=== PATIENT | female | born 1945 | race Caucasian/White ===

== ENCOUNTER 2018-01-19 06:37 | Day surgery (SDC) | payer OTHER ==
--- NOTE | 2018-01-18 10:28 | RAD REPORT ---
EXAM DESCRIPTION: RAD - Chest Pa And Lat (2 Views) - 01/18/2018 10:14 am CLINICAL HISTORY: Abdominal pain Chest pain. COMPARISON: ABDOMEN ACUTE SERIES dated 04/23/2010 FINDINGS: The lungs are mildly emphysematous but clear. The heart is normal in size. No displaced fr actures. IMPRESSION: Mild COPD.
[2018-01-18 12:08] LABS: Absolute Lymphocytes (CBC) 1.7 K/uL (0.7-4.9); Absolute Monocytes 0.4 K/uL (0.1-1.3); Absolute Neutrophil 3.2 K/uL (1.8-8.0); Basophils % 0.4 % (0-1.3); Eosinophils % 1.1 % (0-4.4); Hematocrit 44.8 % (36.0-45.0); Lymphocytes % 31.8 % (15.3-44.8); MCH 32.9 pg (27.0-35.0); MPV 9.2 fL (7.6-11.3); Monocytes % 7.4 % (3.3-12.3); RBC Red Blood Cell Count 4.71 M/uL (3.86-4.86)
--- NOTE | 2018-01-18 12:18 | EKG ---
Test Date: 2018-01-18 Test Time: 10:01:53 Cell Attendant: TUCKER MEASUREMENT RESULTS: Intervals: Rate: 55 OH: 162 QRSD: 100 QT: 464 QTc: 443 [place]: P: 51 OH: 162 QRS: -25 T: 14 INTERPRETIVE STATEMENTS: Sinus bradycardia Possible Left atrial enlargement Low voltage QRS Incomplete right bundle branch block Inferior infarct, age undetermined Abnormal ECG Compared to ECG 04/03/2013 11:13:12 Incomplete right bundle-branch block now present Sinus rhythm no longer present T-wave abnormality no longer present Possible ischemia no longer present Myocardial infarct finding still present Electronically Signed On 01-18-18 12:17:47 CDT by Zeb Sam
[2018-01-18 12:45] LABS: Potassium 3.9 mmol/L (3.5-5.1)
[2018-01-18 12:47] LABS: Albumin 3.8 g/dL (3.4-5.0); Bilirubin Direct 0.2 mg/dL (0-0.2); Bilirubin Total 0.8 mg/dL (0.2-1.0); Protein, Total 7.1 g/dL (6.4-8.2)
--- OUTSIDE RECORDS SUMMARY | 2018-01-19 06:41 | XMS REPORT | Clinical Summary ---
:1945 Author Organization [facility] Address [address] [place] [id number] Care Team Providers Name Role Phone Matt Barry MD Primary Care Provider Allergies Active Allergy Reactions Severity Noted Date Comments Gluten High 12/17/2015 Severe stomach cramp Cephalexin High 12/17/2015 Over 20 yrs ago Herbal Complex No.154 High 09/16/2015 Allergic to cigar smoke with SOB Sulfa (Sulfonamide 12/17/2015 Over 20 years ago Antibiotics) Current Medications Prescription Sig. Disp. Refills Start Date End Date Status levothyroxine (SYNTHROID, Take 75 mcg by Active LEVOTHROID) 75 MCG tablet mouth every morning. Active Problems Not on file Social History Tobacco Use Types Packs/Day Years Used Date Never Smoker Sex Assigned at Date Recorded Not on file Last Filed Vital Signs Not on file Plan of Treatment Not on file Results Not on fileafter 01/18/2017 Insurance Payer Benefit Plan / Group Subscriber ID Type Phone Address [employer] MEDICARE AETNA MEDICARE HMO/PPO [facility] xxxxxxxx HMO y [phone] [place] [address]
[2018-01-19] MEDS ORDERED: MIDAZOLAM HCL 2 MG/2 ML INJ ONE (07:10)
[2018-01-19] MEDS ORDERED: ROCURONIUM 50 MG/5 ML VIAL IV ONE (07:10)
[2018-01-19] MEDS ORDERED: FENTANYL CITR 100 MCG/2 ML ONE (07:10)
[2018-01-19] MEDS ORDERED: PROPOFOL 200 MG/20 ML VIAL IV ONE (07:10)
[2018-01-19] MEDS ORDERED: Ringers Lactate 1,000 ML IV ONE (07:30)
[2018-01-19] MEDS ORDERED: BUPIVACAINE 0.5% PF 10 ML VIAL ONE (07:31)
[2018-01-19] MEDS ORDERED: LIDOCAINE 2% INJ, MPF 2 ML 1 ML ONE (07:37)
[2018-01-19] MEDS ORDERED: CIPROFLOXACIN 400mg IV 400 MG/200 ML BAG IV ONE (08:06)
[2018-01-19] MEDS ORDERED: KETOROLAC 30 MG/ML INJ ONE (08:33)
[2018-01-19] MEDS ORDERED: DEXAMETHASONE 10 MG/ML VIAL ONE (08:33)
[2018-01-19] MEDS ORDERED: ONDANSETRON HCL 40 MG/20 ML VIAL ONE (08:33)
[2018-01-19] MEDS ORDERED: GLYCOPYRROLATE 0.2 MG/ML SYR ONE ×2 (08:40→08:42)
[2018-01-19] MEDS ORDERED: NEOSTIGMINE 1 MG/ML -5 ML SYRINGE ONE (08:40)
--- NOTE | 2018-01-19 08:45 | P.BOP ---
Preoperative diagnosis: RUQ pain, biliary dyskinesia, cholecystitis Postoperative diagnosis: same Primary procedure: Laparoscopic cholecystectomy Top Distribution Executive: THALIA MCLEAN Estimated blood loss: <10cc Specimen: gb Findings: as above Anesthesia: General Complications: None Transferred to: Recovery Room Condition: Good
[2018-01-19] MEDS ORDERED: PROMETHAZINE 25 MG/ML VIAL ONE (09:04)
[2018-01-19] MEDS ORDERED: MEPERIDINE HCL 50 MG/ML AMP ONE (09:04)
[2018-01-19] MEDS ORDERED: CODEINE 30MG/APAP 300MG TAB ONE (10:41)
--- NOTE | 2018-01-19 12:11 | OP ---
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 History: Yelena Canela. Preoperative Diagnoses: Right upper quadrant pain, biliary dyskinesia, cholecystitis. Postoperative Diagnoses: Right upper quadrant pain, biliary dyskinesia, cholecystitis. Procedure: Laparoscopic cholecystectomy. Estimated Blood Loss: Less than 10 cc. Specimen: Gallbladder. Anesthesia: General plus local. Indications: This is the case of a female, who came to us with above diagnosis. Fully explained the benefits, alternatives, and risks of laparoscopic, possible open cholecystectomy, which include but are not limited to infection, bleeding, damage to adjacent structures, anesthesia complication, mookie docholithiasis, bile leak, pancreatitis, CO, and even . She also understands this may not relie ve any symptoms. She might need more than 1 surgical intervention. She understood, signed a consent . Description Of Procedure: The patient was brought to the operating room, placed in supine position. Anesthesia was done without complication. Abdominal area was prepped and draped in the usual steril e fashion. Marcaine 0.5% injectable anesthetic followed by sharp incision of the skin in the periumb ilical region. The patient has a previous tummy tuck. So, we used the previous incision to make the incision on the skin, all the way down to fascia, which was opened under direct vision. Peritoneum was encountered, opened under direct vision. Vicryl #1 placed inside the fascia. Roger trocar was carefully introduced. Pneumoperitoneum was obtained. I proceeded then to put 2 more trocars in the right upper quadrant under direct visualization. The grasper was placed in the fundus of the gallbla dder, another grasper in the infundibulum. There were some omental adhesions to the gallbladder, nee ded to be lysed in order for us to bring the omentum down. No enterotomies. No bleeding. Graspers placed in the fundus of the gallbladder, and the gallbladder was retracted in the inferolateral fashi on exposing the triangle of Calot and obtaining critical view of safety. The cystic duct and cystic artery were clearly isolated free circumferentially and a connection between those and the gallbladde r was clearly identified. I proceeded to ligate those by using at least 3 clips proximal, 1 clip dis noel, ligation in middle, and the cystic artery with 2 clips proximal, 1 clip distal, ligation in midd le. Gallbladder was removed from liver using Bovie cauterizer and removed from abdominal cavity usin g an EndoCatch through the umbilical incision. The area was inspected once again. Lysis of adhesion s. The area was inspected with no bleeding, gallbladder fossa with no bleeding, and clips looked in tact with no bile leak, no bleeding. At that moment, I proceeded to remove the trocars under direct vision. Deflated pneumoperitoneum. Closed the fascia with #1 Vicryl. Irrigated the subcutaneous ti ssue, closed that with 3-0 chromic and skin in a subcuticular fashion with 3-0 chromic and Steri-Stri ps on top. Sponge count and instrument counts were correct. The patient tolerated the procedure wel l. The patient was sent to Recovery in stable condition. NIECY Voice ID: [id number] Report ID: [id number]
--- NOTE | 2018-01-19 12:17 | DS ---
Date of Discharge: 01/19/2018 Diagnoses: Right upper quadrant pain, biliary dyskinesia, cholecystitis. Procedures: Laparoscopic cholecystectomy. Disposition: Home. Activity: As tolerated. No heavy lifting. Discharge Instructions: Follow up in my office in 1 week. Call for appointment [phone]. Keep the area dry for 48 hours, then may shower. Keep the Steri-Strip intact. Medications: See orders for medications. MARKO/TAYLOR Voice ID: [id number] Report ID: [id number]
== END 2018-01-19 10:55 | disposition home or self-care (01) ==
LOC: OR 06:37
PROVIDERS: ATTEND Surgery
PROC: 0FT44ZZ Resection of Gallbladder, Percutaneous Endoscopic Approach (ICD-10-PCS; principal; 2018-01-19 07:30)
DX: K81.9 Cholecystitis, unspecified (principal); K82.8 Other specified diseases of gallbladder; Z88.1 Allergy status to other antibiotic agents; Z88.2 Allergy status to sulfonamides; Z91.048 Other nonmedicinal substance allergy status; Z83.3 Family history of diabetes mellitus; Z82.49 Family history of ischemic heart disease and other diseases of the circulatory system; Z80.3 Family history of malignant neoplasm of breast; Z80.0 Family history of malignant neoplasm of digestive organs
CPT/HCPCS: 36415; 47562; 71046; 80048; 80076; 82150; 83690; 85025; 88304; 93005; J0744; J1100; J2175; J2405; J2710; J3010; J3490; J2250; J2550